=== PATIENT | female | born 1970 | race Caucasian/White ===

== ENCOUNTER 2017-09-25 14:41 | Emergency (ER) | payer OTHER ==
[2017-09-25] MEDS ORDERED: NS 1,000 ML IV ONE (14:54)
--- NOTE | 2017-09-25 15:12 | EDPHY ---
HPI/HX/ROS/PE/MDM Narrative: CHIEF COMPLAINT: Vaginal bleeding HPI: This patient is a non-anticoagulated healthy 47 year old female. She complains of mild bright red vaginal bleeding over the past 48 hours. She describes this as primarily spotting, but can be heavier when she uses the restroom. It has been 2.5 years since her last menstrual cycle, so she is concerned regarding the etiology of this. She has felt "uncomfortable", bloated, and lethargic for several days. She endorses nausea yesterday, but no vomiting. She is travelling for several weeks beginning on Saturday, so she called her PCP this morning, who recommended she present to the ED for evaluation. She was unable to make an appointment with an T[employer]RET [facility]HE TENDER today. The patient denies any history of TURRET [employer]HE T[employer]ER surgeries in the past. She has history of ovarian cysts with rupture, but no problems recently. The patient states she has been under increased stress lately , and endorses an occasional mild cough and some extremity paresthesias. She denies fever, chest pain, shortness of breath, diarrhea, or other associated symptoms. REVIEW OF SYSTEMS: Aside from elements discussed in the HPI, a comprehensive 10-point review of systems was reviewed and is negative. PMH: Ovarian cysts. Remote history of Bradford's disease. SOCIAL HISTORY: Lives in [place]. . Employed. PHYSICAL EXAM: General:Patient is alert, in no acute distress. ENT:Eyes are normal to inspection. ENT inspection normal. Neck: Normal inspection. Full range of motion. Respiratory:No respiratory distress. Breath sounds normal bilaterally. Cardiovascular: Regular rate and rhythm. Strong peripheral pulses. Normal cap refill. Abdomen:The abdomen is nontender to palpation. There are no peritoneal signs. There are normal bowel sounds. Back: Normal to inspection. No tenderness to palpation. Skin: Normal color. No rash. Warm and dry. Extremities: Normal appearance. Full range of motion. Neuro: Oriented x3. Normal motor function. Normal sensory function. ED Course: 47 y/o female presents with 48 hour history of mild vaginal bleeding. She is well-appearing, exam unremarkable. Plan for pelvic US. Plan for labs including CBC, chemistries, BHCG, UA. Plan to administer 1L IV NS. Hct 35.3. Laboratory studies otherwise largely unremarkable. Blood in UA is likely due to the patient's vaginal bleeding. 17:[address] Monteiro, radiologist. US pelvis shows hemorrhagic left ovarian cyst. Recommend follow-up US in 6-8 weeks. Reassessed patient. Discussed results. The patient declines pelvic exam at this time and tells me that she needs to be discharged urgently to attend some personal business. She understands I am unable to rule out potentially serious causes of her bleeding without further exam. Plan to discharge home in good condition. Return precautions discussed. I encouraged her to follow up with OB/ RETAIL CUST[employer]ER SERVICE SPECIALIST before she travels on Saturday. Plan to consult with [employer] information technology security analyst. 17:[address] Porter, T[employer] T[employer]ER. The patient can follow up in his office this week prior to her departure. She is comfortable with this plan. - Data Points Imaging Results: Imaging Impressions Pelvic/Renal Ultrasound 09/25/17 16:33 Impression: 1. Small nodule versus hemorrhagic cyst left ovary. Recommend follow-up ultrasound in 6-8 weeks. 2. Small simple cyst right ovary. 3. Normal uterus and endometrium. Results called and discussed with Estrada Osorio MD, at 09/25/2017 17:36 Imaging: Discussed imaging studies w/ call circuit worker Radiologist Laboratory Results: Laboratory Results 09/25/17 13:42 09/25/17 13:42 09/25/17 09/25/17 09/25/17 16:15 13:42 13:42 WBC RBC Hgb Hct MCV MCH MCHC RDW Plt Count MPV Neut % (Auto) Lymph % (Auto) [place] % (Auto) Eos % (Auto) Baso % (Auto) Nucleat RBC Rel Count Absolute Neuts (auto) Absolute Lymphs (auto) Absolute Monos (auto) Absolute Eos (auto) Absolute Basos (auto) Absolute Nucleated RBC Immature Gran % Immature Gran # PT INR APTT Sodium 138 mEq/L mEq/L (135-145) Potassium 4.0 mEq/L mEq/L (3.3-5.0) Chloride 107 mEq/L mEq/L (97-110) Carbon Dioxide 24 mEq/l mEq/l (22-31) Anion Gap 7 mEq/L L mEq/L (8-16) BUN 17 mg/dL mg/dL (7-23) Creatinine 0.8 mg/dL mg/dL (0.6-1.0) Estimated GFR > 60 Glucose 82 mg/dL mg/dL (70-100) Calcium 9.3 mg/dL mg/dL (8.5-10.4) Beta HCG, Qual NEGATIVE Urine Color YELLOW Urine Appearance CLEAR Urine pH 5.0 (5.0-7.5) Ur Specific [place] 1.020 (1.002-1.030) Urine Protein NEGATIVE (NEGATIVE) Urine Ketones NEGATIVE (NEGATIVE) Urine Blood 1+ H (NEGATIVE) Urine Nitrate NEGATIVE (NEGATIVE) Urine Bilirubin NEGATIVE (NEGATIVE) Urine Urobilinogen NEGATIVE EU EU (0.2-1.0) Ur Leukocyte Esterase NEGATIVE (NEGATIVE) Urine RBC 10-15 /hpf H /hpf (0-3) Urine WBC 1-3 /hpf /hpf (0-3) Ur Epithelial Cells TRACE /lpf /lpf (NONE-1+) Urine Mucus 1+ /lpf /lpf (NONE-1+) Urine Glucose NEGATIVE (NEGATIVE) 09/25/17 09/25/17 13:42 13:42 WBC 6.32 10^3/uL 10^3/uL (3.80-9.50) RBC 4.10 10^6/uL L 10^6/uL (4.18-5.33) Hgb 11.8 g/dL L g/dL (12.6-16.3) Hct 35.3 % L % (38.0-47.0) MCV 86.1 fL fL (81.5-99.8) MCH 28.8 pg pg (27.9-34.1) MCHC 33.4 g/dL g/dL (32.4-36.7) RDW 12.4 % % (11.5-15.2) Plt Count 374 10^3/uL 10^3/uL (150-400) MPV 10.2 fL fL (8.7-11.7) Neut % (Auto) 47.8 % % (39.3-74.2) Lymph % (Auto) 40.5 % % (15.0-45.0) [place] % (Auto) 7.8 % % (4.5-13.0) Eos % (Auto) 2.8 % % (0.6-7.6) Baso % (Auto) 0.9 % % (0.3-1.7) Nucleat RBC Rel Count 0.0 % % (0.0-0.2) Absolute Neuts (auto) 3.02 10^3/uL 10^3/uL (1.70-6.50) Absolute Lymphs (auto) 2.56 10^3/uL 10^3/uL (1.00-3.00) Absolute Monos (auto) 0.49 10^3/uL 10^3/uL (0.30-0.80) Absolute Eos (auto) 0.18 10^3/uL 10^3/uL (0.03-0.40) Absolute Basos (auto) 0.06 10^3/uL 10^3/uL (0.02-0.10) Absolute Nucleated RBC 0.00 10^3/uL 10^3/uL (0-0.01) Immature Gran % 0.2 % % (0.0-1.1) Immature Gran # 0.01 10^3/uL 10^3/uL (0.00-0.10) PT 13.6 SEC SEC (12.0-15.0) INR 1.02 (0.83-1.16) APTT 28.2 SEC SEC (23.0-38.0) Sodium Potassium Chloride Carbon Dioxide Anion Gap BUN Creatinine Estimated GFR Glucose Calcium Beta HCG, Qual Urine Color Urine Appearance Urine pH Ur Specific [place] Urine Protein Urine Ketones Urine Blood Urine Nitrate Urine Bilirubin Urine Urobilinogen Ur Leukocyte Esterase Urine RBC Urine WBC Ur Epithelial Cells Urine Mucus Urine Glucose Medications Given: Discontinued Medications Sodium Chloride (Ns) 1,000 mls @ 0 mls/hr IV EDNOW ONE; Wide Open PRN Reason: Protocol Stop: 09/25/17 14:55 Last Admin: 09/25/17 15:40 Dose: 1,000 mls General Time Seen by Provider: 09/25/17 14:54 Initial Vital Signs: Initial Vital Signs Temperature (C) 37.0 C 09/25/17 14:47 Heart Rate 65 09/25/17 14:47 Respiratory Rate 18 09/25/17 14:47 Blood Pressure 108/72 09/25/17 14:47 O2 Sat (%) 98 09/25/17 14:47 O2 Delivery Mode Room Air Allergies/Adverse Reactions: No Known Allergies Allergy (Verified 09/25/17 14:46) Home Medications: Medication Instructions Recorded LORazepam [Ativan 1 mg (RX)] 1 mg PO BID 06/25/11 Departure - Departure Disposition: Home, Routine, Self-Care Clinical Impression: Vaginal bleeding, Hemorrhagic cyst of ovary Condition: Good Instructions: Ovarian Cyst (ED) Additional Instructions: 1. Follow up with an [employer]RET [employer] T[employer]ER specialist within 72 hours. 2. We recommend a follow-up ultrasound to reevaluate your left ovarian cyst in 6 -8 weeks. 3. Return to the emergency department for fever, increased pain, heavy bleeding , or other worsening of condition or further concerns. Referrals: [facility] [Primary Care Provider] - As per Instructions David Porter MD [Medical Doctor] - As per Instructions Report Scribed for: Estrada Osorio Report Scribed by: Tatiana Negrete Date of Report: 09/25/17 Time of Report: 15:12 Physician Review and Approval Statement: Portions of this note were transcribed by an ED scribe. I personally performed the history, physical exam, and medical decision making; and confirm the accuracy of the information in the transcribed note.
[2017-09-25 16:08] LABS: PLATELET COUNT 374 10^3/uL (150-400)
[2017-09-25 16:15] LABS: INR 1.02 (0.83-1.16); PROTIME(PATIENT) 13.6 SEC (12.0-15.0)
[2017-09-25 18:13] VITALS: BP 110/69
== END 2017-09-25 18:09 | disposition home or self-care (01) ==
DX: N83.201 Unspecified ovarian cyst, right side (principal); E86.9 Volume depletion, unspecified; N83.202 Unspecified ovarian cyst, left side

== ENCOUNTER → 2017-12-27 | Outpatient (CLI) | payer OTHER | LOC: FIMAGING 13:16 | PROVIDERS: ATTEND Family Medicine | DX: N83.202 Unspecified ovarian cyst, left side (principal) ==